=== PATIENT | male | born 1935 | race Asian ===

== ENCOUNTER → 2021-01-16 | Outpatient (CLI) | payer MEDICARE, OTHER | END | disposition home or self-care (01) | LOC: RADPV 10:42 | PROVIDERS: ATTEND Legal Medicine | DX: I08.3 Combined rheumatic disorders of mitral, aortic and tricuspid valves (principal) | CPT/HCPCS: 93306 ==

== ENCOUNTER 2021-02-08 16:01 | Inpatient (IN) | payer MEDICARE, OTHER ==
[~2021-02-08] VITALS: Ht 170.2 cm; Wt 65.0 kg
[2021-02-08 18:50] LABS: BASOPHILS % (AUTO) 0.7 % (0.0-2.0); EOSINOPHILS % (AUTO) 1.7 % (1.0-6.0); HEMATOCRIT 37.7 % (41-53); HEMOGLOBIN 11.9 g/dL (13.5-17.5); LYMPHOCYTES # (AUTO) 1.1 K/uL (1.0-4.8); LYMPHOCYTES % (AUTO) 12.3 % (22.0-44.0); MEAN CORPUSCULAR HGB CONC 31.6 G/dL (31.0-37.0); MEAN CORPUSCULAR VOLUME 95 fL (80-100); MONOCYTES # (AUTO) 0.7 K/uL (0.1-1.0); MONOCYTES % (AUTO) 7.3 % (2.0-9.0); NEUTROPHILS # (AUTO) 7.1 K/uL (1.8-7.7); PLATELET COUNT (AUTO) 278 K/uL (150-450); RED BLOOD CELL COUNT(AUTO) 3.96 MIL/uL (4.50-5.90); RED CELL DISTRIBUTION WIDTH 13.3 % (11.5-14.5)
[2021-02-08 18:59] LABS: CALCIUM, TOTAL 8.8 mg/dL (8.8-10.5); CREATININE 1.51 mg/dL (0.60-1.30); POTASSIUM 4.3 mmol/L (3.5-5.1)
[2021-02-08 19:05] LABS: TOTAL PROTEIN, SERUM 8.4 g/dL (6.4-8.2)
[2021-02-08 19:30] LABS: COVID AG,FIA SOURCE NASOPHARYNGEAL
[2021-02-08] MEDS ORDERED: ONDANSETRON HCL 4 MG/2 ML VIAL IVP PRN (19:30)
[2021-02-08] MEDS ORDERED: HEPARIN SODIUM,PORCINE 5,000 UNITS/ML VIAL IVP PRN ×2 (19:30)
[2021-02-08] MEDS ORDERED: ATORVASTATIN CALCIUM 40 MG TABLET PO ONE (19:30)
[2021-02-08] MEDS ORDERED: ASPIRIN 325 MG DR TABLET PO ONE (19:30)
[2021-02-08] MEDS ORDERED: HEPARIN SODIUM,PORCINE 5,000 UNITS/ML VIAL IVP ONE (19:30)
[2021-02-08 19:54] LABS: BASOPHILS % (AUTO) 0.5 % (0.0-2.0); EOSINOPHILS % (AUTO) 1.9 % (1.0-6.0); HEMATOCRIT 34.6 % (41-53); HEMOGLOBIN 11.2 g/dL (13.5-17.5); LYMPHOCYTES # (AUTO) 0.9 K/uL (1.0-4.8); LYMPHOCYTES % (AUTO) 12.6 % (22.0-44.0); MEAN CORPUSCULAR HEMOGLOBIN 29.9 pg (26.0-34.0); MEAN CORPUSCULAR HGB CONC 32.4 G/dL (31.0-37.0); MEAN CORPUSCULAR VOLUME 92 fL (80-100); MONOCYTES # (AUTO) 0.6 K/uL (0.1-1.0); MONOCYTES % (AUTO) 8.6 % (2.0-9.0); NEUTROPHILS # (AUTO) 5.4 K/uL (1.8-7.7); NEUTROPHILS % (AUTO) 76.4 % (40.0-70.0); PLATELET COUNT (AUTO) 276 K/uL (150-450); RED BLOOD CELL COUNT(AUTO) 3.74 MIL/uL (4.50-5.90); RED CELL DISTRIBUTION WIDTH 13.3 % (11.5-14.5)
[2021-02-08 20:05] LABS: D-DIMER 1.43 mg/L FEU (0.00-0.50); INR 1.1 (0.9-1.1); PROTHROMBIN TIME 11.4 SEC (9.4-11.6)
[2021-02-08] MEDS: METOPROLOL TARTRATE 25 MG TABLET PO SCH ×2 (20:12→20:17)
[2021-02-08] MEDS: HEPARIN SODIUM 25000 UNITS/D5W 250 ML IV PRN (20:27)
[2021-02-08] MEDS ORDERED: CARVEDILOL 3.125 MG TABLET PO SCH (21:00)
[2021-02-08] MEDS ORDERED: SODIUM CHLORIDE 0.9% 250 ML IV ONE (22:33)
[2021-02-08 22:58] VITALS: BP 105/64
[2021-02-09] MEDS ORDERED: INFLUENZA VIRUS VACCINE QVS 2021-22 (6MO+)/PF 60 MCG/0.5 ML SYRINGE IM. ONE (01:45)
[2021-02-09] MEDS ORDERED: PNEUMOCOCCAL VACCINE POLYVALENT 0.5 ML VIAL [PPSV23] IM. ONE (01:45)
[2021-02-09 04:03] VITALS: BP 99/60
[2021-02-09 06:22] LABS: BASOPHILS % (AUTO) 1.1 % (0.0-2.0); LYMPHOCYTES # (AUTO) 1.4 K/uL (1.0-4.8); LYMPHOCYTES % (AUTO) 18.5 % (22.0-44.0); MEAN CORPUSCULAR HEMOGLOBIN 30.3 pg (26.0-34.0); MEAN CORPUSCULAR HGB CONC 32.4 G/dL (31.0-37.0); MEAN CORPUSCULAR VOLUME 94 fL (80-100); MONOCYTES # (AUTO) 0.6 K/uL (0.1-1.0); MONOCYTES % (AUTO) 8.6 % (2.0-9.0); NEUTROPHILS # (AUTO) 5.1 K/uL (1.8-7.7); NEUTROPHILS % (AUTO) 67.8 % (40.0-70.0); PLATELET COUNT (AUTO) 255 K/uL (150-450); RED BLOOD CELL COUNT(AUTO) 3.63 MIL/uL (4.50-5.90); RED CELL DISTRIBUTION WIDTH 13.1 % (11.5-14.5)
[2021-02-09 06:43] LABS: CALCIUM, TOTAL 8.5 mg/dL (8.8-10.5); CREATININE 1.27 mg/dL (0.60-1.30); MAGNESIUM 2.3 mg/dL (1.80-2.40); POTASSIUM 4.5 mmol/L (3.5-5.1)
[2021-02-09 07:30] VITALS: BP 102/66
[2021-02-09] MEDS: ATORVASTATIN CALCIUM 40 MG TABLET PO SCH (08:48)
[2021-02-09] MEDS: FUROSEMIDE 20 MG/2 ML VIAL IVP SCH (08:49)
[2021-02-09] MEDS: ASPIRIN 81 MG CHEWABLE TABLET PO SCH (08:49)
[2021-02-09] MEDS: METOPROLOL TARTRATE 25 MG TABLET PO SCH ×2 (08:50→20:06)
[2021-02-09] MEDS ORDERED: ATORVASTATIN CALCIUM 40 MG TABLET PO SCH (09:00)
[2021-02-09 11:39] VITALS: BP 93/60
[2021-02-09 15:43] VITALS: BP 99/60
[2021-02-09 20:04] VITALS: BP 97/59
[2021-02-09] MEDS ORDERED: ALBUTEROL SULFATE 2.5 MG/0.5 ML NEB SOLUTION NEB PRN (22:15)
[2021-02-10] VITALS (7 sets, daily range): BP systolic 83–113; BP diastolic 54–70
[2021-02-10 06:46] LABS: BASOPHILS % (AUTO) 0.9 % (0.0-2.0); EOSINOPHILS % (AUTO) 2.8 % (1.0-6.0); HEMATOCRIT 34.7 % (41-53); HEMOGLOBIN 11.5 g/dL (13.5-17.5); LYMPHOCYTES # (AUTO) 1.2 K/uL (1.0-4.8); LYMPHOCYTES % (AUTO) 14.4 % (22.0-44.0); MEAN CORPUSCULAR HEMOGLOBIN 30.5 pg (26.0-34.0); MEAN CORPUSCULAR HGB CONC 33.2 G/dL (31.0-37.0); MEAN CORPUSCULAR VOLUME 92 fL (80-100); MONOCYTES # (AUTO) 0.6 K/uL (0.1-1.0); MONOCYTES % (AUTO) 7.2 % (2.0-9.0); NEUTROPHILS # (AUTO) 6.1 K/uL (1.8-7.7); NEUTROPHILS % (AUTO) 74.7 % (40.0-70.0); PLATELET COUNT (AUTO) 302 K/uL (150-450); RED BLOOD CELL COUNT(AUTO) 3.78 MIL/uL (4.50-5.90)
[2021-02-10 07:23] LABS: ALBUMIN 2.7 g/dL (3.4-5.0); CALCIUM, TOTAL 8.8 mg/dL (8.8-10.5); CREATININE 1.29 mg/dL (0.60-1.30); MAGNESIUM 2.1 mg/dL (1.80-2.40); POTASSIUM 4.2 mmol/L (3.5-5.1); TOTAL PROTEIN, SERUM 8.2 g/dL (6.4-8.2)
[2021-02-10] MEDS: FUROSEMIDE 20 MG/2 ML VIAL IVP SCH (07:47)
[2021-02-10] MEDS: ASPIRIN 81 MG CHEWABLE TABLET PO SCH (07:48)
[2021-02-10] MEDS: METOPROLOL TARTRATE 25 MG TABLET PO SCH ×2 (07:49→20:38)
[2021-02-10] MEDS: ATORVASTATIN CALCIUM 40 MG TABLET PO SCH (09:05)
[2021-02-10] MEDS: SACUBITRIL/VALSARTAN 24-26 MG TABLET PO SCH ×2 (10:12→20:38)
[2021-02-11 05:10] VITALS: BP 95/58
[2021-02-11 06:26] LABS: BASOPHILS % (AUTO) 0.9 % (0.0-2.0); EOSINOPHILS % (AUTO) 3.1 % (1.0-6.0); HEMATOCRIT 32.2 % (41-53); HEMOGLOBIN 10.7 g/dL (13.5-17.5); LYMPHOCYTES # (AUTO) 1.2 K/uL (1.0-4.8); LYMPHOCYTES % (AUTO) 14.9 % (22.0-44.0); MEAN CORPUSCULAR HGB CONC 33.2 G/dL (31.0-37.0); MEAN CORPUSCULAR VOLUME 93 fL (80-100); MONOCYTES # (AUTO) 0.7 K/uL (0.1-1.0); MONOCYTES % (AUTO) 8.2 % (2.0-9.0); NEUTROPHILS # (AUTO) 5.9 K/uL (1.8-7.7); NEUTROPHILS % (AUTO) 72.9 % (40.0-70.0); PLATELET COUNT (AUTO) 274 K/uL (150-450); RED BLOOD CELL COUNT(AUTO) 3.45 MIL/uL (4.50-5.90); RED CELL DISTRIBUTION WIDTH 12.9 % (11.5-14.5)
[2021-02-11 06:54] LABS: ALBUMIN 2.3 g/dL (3.4-5.0); BILIRUBIN,TOTAL 0.7 mg/dL (0.1-1.0); CALCIUM, TOTAL 8.5 mg/dL (8.8-10.5); CREATININE 1.19 mg/dL (0.60-1.30); MAGNESIUM 2.2 mg/dL (1.80-2.40); POTASSIUM 4.2 mmol/L (3.5-5.1); TOTAL PROTEIN, SERUM 6.8 g/dL (6.4-8.2)
[2021-02-11 08:19] VITALS: BP 90/59
[2021-02-11] MEDS: ASPIRIN 81 MG CHEWABLE TABLET PO SCH (08:49)
[2021-02-11] MEDS: ATORVASTATIN CALCIUM 40 MG TABLET PO SCH (08:49)
[2021-02-11] MEDS: FUROSEMIDE 20 MG/2 ML VIAL IVP SCH (08:50)
[2021-02-11] MEDS: METOPROLOL TARTRATE 25 MG TABLET PO SCH ×2 (08:50→21:00)
[2021-02-11] MEDS: SACUBITRIL/VALSARTAN 24-26 MG TABLET PO SCH ×2 (08:50→21:04)
[2021-02-11 11:40] VITALS: BP 132/54
[2021-02-11 15:46] VITALS: BP 93/53
[2021-02-11 20:25] VITALS: BP 90/51
[2021-02-11 23:39] VITALS: BP 94/58
[2021-02-12] MEDS: HEPARIN SODIUM 25000 UNITS/D5W 250 ML IV PRN (03:11)
[2021-02-12 06:04] VITALS: BP 92/54
[2021-02-12 07:08] LABS: BASOPHILS % (AUTO) 0.5 % (0.0-2.0); EOSINOPHILS % (AUTO) 2.5 % (1.0-6.0); HEMATOCRIT 32.2 % (41-53); HEMOGLOBIN 10.4 g/dL (13.5-17.5); LYMPHOCYTES # (AUTO) 1.1 K/uL (1.0-4.8); LYMPHOCYTES % (AUTO) 12.2 % (22.0-44.0); MEAN CORPUSCULAR HEMOGLOBIN 30.3 pg (26.0-34.0); MEAN CORPUSCULAR HGB CONC 32.4 G/dL (31.0-37.0); MEAN CORPUSCULAR VOLUME 94 fL (80-100); MONOCYTES # (AUTO) 0.6 K/uL (0.1-1.0); MONOCYTES % (AUTO) 6.5 % (2.0-9.0); NEUTROPHILS # (AUTO) 7.1 K/uL (1.8-7.7); NEUTROPHILS % (AUTO) 78.3 % (40.0-70.0); PLATELET COUNT (AUTO) 315 K/uL (150-450); RED BLOOD CELL COUNT(AUTO) 3.44 MIL/uL (4.50-5.90); RED CELL DISTRIBUTION WIDTH 13.2 % (11.5-14.5)
[2021-02-12 07:51] VITALS: BP 98/58
[2021-02-12] MEDS: ASPIRIN 81 MG CHEWABLE TABLET PO SCH (08:36)
[2021-02-12] MEDS: FUROSEMIDE 20 MG/2 ML VIAL IVP SCH (08:36)
[2021-02-12] MEDS: ATORVASTATIN CALCIUM 40 MG TABLET PO SCH (08:37)
[2021-02-12] MEDS: SACUBITRIL/VALSARTAN 24-26 MG TABLET PO SCH ×2 (08:40→21:00)
[2021-02-12] MEDS: METOPROLOL TARTRATE 25 MG TABLET PO SCH ×2 (08:40→21:00)
[2021-02-12 12:52] VITALS: BP 89/57
[2021-02-12 15:43] VITALS: BP 103/54
[2021-02-12] MEDS: HEPARIN SODIUM,PORCINE 5,000 UNITS/ML VIAL SQ SCH ×2 (17:06→23:41)
[2021-02-12 19:45] VITALS: BP 91/55
[2021-02-13] VITALS (14 sets, daily range): BP systolic 80–111; BP diastolic 43–67
[2021-02-13] MEDS: ASPIRIN 81 MG CHEWABLE TABLET PO SCH (08:03)
[2021-02-13] MEDS: HEPARIN SODIUM,PORCINE 5,000 UNITS/ML VIAL SQ SCH ×3 (08:03→23:48)
[2021-02-13] MEDS: ATORVASTATIN CALCIUM 40 MG TABLET PO SCH (08:04)
[2021-02-13] MEDS: FUROSEMIDE 20 MG/2 ML VIAL IVP SCH (08:04)
[2021-02-13] MEDS: METOPROLOL TARTRATE 25 MG TABLET PO SCH ×4 (08:05→20:03)
[2021-02-13] MEDS: SACUBITRIL/VALSARTAN 24-26 MG TABLET PO SCH ×2 (08:06→20:03)
[2021-02-13] MEDS ORDERED: FURO20 PO (11:51)
[2021-02-13] MEDS ORDERED: ASPI-1450 PO (11:51)
[2021-02-13] MEDS ORDERED: ATOR20TA86 PO (11:51)
[2021-02-13] MEDS ORDERED: METO25 PO (11:52)
[2021-02-13] MEDS ORDERED: SACU1TAB PO (11:52)
[2021-02-13] MEDS ORDERED: APIX2.5T PO (11:53)
[2021-02-13] MEDS: DOCUSATE SODIUM 100 MG CAPSULE PO SCH (12:08)
[2021-02-13] MEDS: ACETAMINOPHEN 325 MG TABLET PO PRN (13:08)
[2021-02-13 14:23] LABS: CALCIUM, TOTAL 8.8 mg/dL (8.8-10.5); CREATININE 1.78 mg/dL (0.60-1.30); POTASSIUM 4.2 mmol/L (3.5-5.1)
[2021-02-13 14:26] LABS: MAGNESIUM 2.3 mg/dL (1.80-2.40); PHOSPHORUS 4.1 mg/dL (2.5-4.9)
[2021-02-13] MEDS: TICAGRELOR 90 MG TABLET PO SCH ×2 (14:33→20:03)
[2021-02-13] MEDS ORDERED: SODIUM CHLORIDE 0.9% 1,000 ML ONE (16:20)
[2021-02-13] MEDS ORDERED: SODIUM CHLORIDE 0.9% 1,000 ML IV ONE ×2 (16:30→17:30)
[2021-02-13] MEDS ORDERED: SODIUM CHLORIDE 0.9% 150 ML IV ONE (21:00)
[2021-02-13 21:05] LABS: HEMATOCRIT 28.7 % (41-53); HEMOGLOBIN 9.5 g/dL (13.5-17.5)
[2021-02-14] VITALS (22 sets, daily range): BP systolic 6–139; BP diastolic 45–83
[2021-02-14 06:39] LABS: HEMATOCRIT 27.3 % (41-53); HEMOGLOBIN 8.9 g/dL (13.5-17.5); MEAN CORPUSCULAR HEMOGLOBIN 30.2 pg (26.0-34.0); MEAN CORPUSCULAR HGB CONC 32.7 G/dL (31.0-37.0); MEAN CORPUSCULAR VOLUME 93 fL (80-100); PLATELET COUNT (AUTO) 351 K/uL (150-450); RED BLOOD CELL COUNT(AUTO) 2.95 MIL/uL (4.50-5.90); RED CELL DISTRIBUTION WIDTH 13.4 % (11.5-14.5)
[2021-02-14 07:07] LABS: ALBUMIN 2.7 g/dL (3.4-5.0); BILIRUBIN,TOTAL 0.8 mg/dL (0.1-1.0); CALCIUM, TOTAL 8.7 mg/dL (8.8-10.5); CREATININE 1.42 mg/dL (0.60-1.30); POTASSIUM 5.2 mmol/L (3.5-5.1); TOTAL PROTEIN, SERUM 7.9 g/dL (6.4-8.2)
[2021-02-14 07:23] LABS: INR 1.1 (0.9-1.1); PROTHROMBIN TIME 11.5 SEC (9.4-11.6)
[2021-02-14] MEDS: HEPARIN SODIUM,PORCINE 5,000 UNITS/ML VIAL SQ SCH ×3 (08:00→23:45)
[2021-02-14 08:09] LABS: BAND NEUTROPHILS % (MANUAL) 1 % (0-5); EOSINOPHILS % (MANUAL) 1 % (1-6); LYMPHOCYTES % (MANUAL) 13 % (22-44); MONOCYTES % (MANUAL) 4 % (2-9); SEGMENTED NEUTROPHILS % 81 % (40-70)
[2021-02-14] MEDS ORDERED: IOHEXOL 300 MG/ML 100 ML VIAL ONE (08:48)
[2021-02-14] MEDS ORDERED: IOHEXOL 300 MG/ML 150 ML VIAL ONE (08:48)
[2021-02-14] MEDS ORDERED: SODIUM BICARBONATE 50 MEQ/50 ML VIAL ONE (08:48)
[2021-02-14] MEDS ORDERED: HEPARIN SODIUM 1000 UNITS/NS 1,000 ML ONE (08:48)
[2021-02-14] MEDS ORDERED: IOHEXOL 300 MG/ML 50 ML VIAL ONE (08:48)
[2021-02-14] MEDS ORDERED: LIDOCAINE/PF 1% 30 ML VIAL ONE (08:48)
[2021-02-14] MEDS: DOCUSATE SODIUM 100 MG CAPSULE PO SCH (08:56)
[2021-02-14] MEDS: ASPIRIN 81 MG CHEWABLE TABLET PO SCH (08:56)
[2021-02-14] MEDS: ATORVASTATIN CALCIUM 40 MG TABLET PO SCH (08:56)
[2021-02-14] MEDS: FUROSEMIDE 20 MG/2 ML VIAL IVP SCH (08:57)
[2021-02-14] MEDS: TICAGRELOR 90 MG TABLET PO SCH ×2 (08:57→20:26)
[2021-02-14] MEDS: SACUBITRIL/VALSARTAN 24-26 MG TABLET PO SCH ×2 (09:00→21:00)
[2021-02-14] MEDS: METOPROLOL TARTRATE 25 MG TABLET PO SCH ×2 (09:00→21:00)
[2021-02-14] MEDS ORDERED: FentaNYL CITRATE PF 100 MCG/2 ML VIAL ONE (09:25)
[2021-02-14] MEDS ORDERED: MIDAZOLAM HCL 2 MG/2 ML VIAL ONE (09:25)
[2021-02-14] MEDS ORDERED: NITROGLYCERIN 50 MG/D5% WATER 0 ML ONE (09:26)
[2021-02-14] MEDS ORDERED: VERAPAMIL HCL 2.5 MG/ML 2 ML VIAL ONE (09:26)
[2021-02-14] MEDS ORDERED: LIDOCAINE 1% 30 ML/SOD BICARB 8.4% 4 ML SQ ONE (09:45)
[2021-02-14] MEDS ORDERED: IOHEXOL 300 MG/ML 150 ML VIAL IARTER ONE (09:45)
[2021-02-14] MEDS ORDERED: HEPARIN SODIUM 1000 UNITS/NS 1,000 ML IARTER ONE (09:45)
[2021-02-14] MEDS ORDERED: SODIUM POLYSTYRENE SULFONATE 15 GM/60 ML SUSPENSION BOTTLE PO ONE (15:00)
[2021-02-14] MEDS ORDERED: SODIUM CHLORIDE 0.9% 250 ML IV ONE (20:15)
[2021-02-15] VITALS (10 sets, daily range): BP systolic 85–109; BP diastolic 45–66
[2021-02-15] MEDS: TICAGRELOR 90 MG TABLET PO SCH ×2 (07:49→20:27)
[2021-02-15] MEDS: ATORVASTATIN CALCIUM 40 MG TABLET PO SCH (07:49)
[2021-02-15] MEDS: DOCUSATE SODIUM 100 MG CAPSULE PO SCH (07:49)
[2021-02-15] MEDS: ASPIRIN 81 MG CHEWABLE TABLET PO SCH (07:49)
[2021-02-15] MEDS: ACETAMINOPHEN 325 MG TABLET PO PRN (07:50)
[2021-02-15] MEDS: FUROSEMIDE 20 MG/2 ML VIAL IVP SCH (07:50)
[2021-02-15] MEDS: HEPARIN SODIUM,PORCINE 5,000 UNITS/ML VIAL SQ SCH (07:50)
[2021-02-15] MEDS: SACUBITRIL/VALSARTAN 24-26 MG TABLET PO SCH ×2 (07:51→20:23)
[2021-02-15] MEDS: METOPROLOL TARTRATE 25 MG TABLET PO SCH ×2 (07:51→20:01)
[2021-02-15] MEDS ORDERED: HEPARIN SODIUM,PORCINE 5,000 UNITS/ML VIAL IVP PRN ×2 (09:45)
[2021-02-15] MEDS ORDERED: HEPARIN SODIUM,PORCINE 5,000 UNITS/ML VIAL IVP ONE (09:45)
[2021-02-15] MEDS ORDERED: HEPARIN SODIUM 25000 UNITS/D5W 250 ML IV PRN (09:45)
[2021-02-15] MEDS ORDERED: SODIUM CHLORIDE 0.9% 500 ML IV ONE (11:55)
[2021-02-15] MEDS ORDERED: SODIUM CHLORIDE 0.9% 250 ML IV ONE (12:00)
[2021-02-15 12:10] LABS: BASOPHILS % (AUTO) 0.8 % (0.0-2.0); EOSINOPHILS % (AUTO) 0.6 % (1.0-6.0); HEMATOCRIT 25.4 % (41-53); HEMOGLOBIN 8.3 g/dL (13.5-17.5); LYMPHOCYTES # (AUTO) 1.1 K/uL (1.0-4.8); LYMPHOCYTES % (AUTO) 11.6 % (22.0-44.0); MEAN CORPUSCULAR HEMOGLOBIN 30.5 pg (26.0-34.0); MEAN CORPUSCULAR HGB CONC 32.8 G/dL (31.0-37.0); MEAN CORPUSCULAR VOLUME 93 fL (80-100); MONOCYTES # (AUTO) 0.6 K/uL (0.1-1.0); MONOCYTES % (AUTO) 6.3 % (2.0-9.0); NEUTROPHILS # (AUTO) 7.9 K/uL (1.8-7.7); NEUTROPHILS % (AUTO) 80.7 % (40.0-70.0); PLATELET COUNT (AUTO) 327 K/uL (150-450); RED BLOOD CELL COUNT(AUTO) 2.72 MIL/uL (4.50-5.90)
[2021-02-15 12:25] LABS: INR 1.1 (0.9-1.1); PROTHROMBIN TIME 11.7 SEC (9.4-11.6)
[2021-02-15 15:10] LABS: COVID AG,FIA SOURCE NASOPHARYNGEAL
[2021-02-16] VITALS (10 sets, daily range): BP systolic 75–108; BP diastolic 40–70
[2021-02-16 06:26] LABS: BASOPHILS % (AUTO) 0.8 % (0.0-2.0); EOSINOPHILS % (AUTO) 0.7 % (1.0-6.0); HEMATOCRIT 23.9 % (41-53); HEMOGLOBIN 7.9 g/dL (13.5-17.5); LYMPHOCYTES # (AUTO) 1.7 K/uL (1.0-4.8); LYMPHOCYTES % (AUTO) 13.4 % (22.0-44.0); MEAN CORPUSCULAR HEMOGLOBIN 31.6 pg (26.0-34.0); MEAN CORPUSCULAR VOLUME 96 fL (80-100); MONOCYTES # (AUTO) 0.7 K/uL (0.1-1.0); MONOCYTES % (AUTO) 5.6 % (2.0-9.0); NEUTROPHILS # (AUTO) 10.2 K/uL (1.8-7.7); NEUTROPHILS % (AUTO) 79.5 % (40.0-70.0); PLATELET COUNT (AUTO) 356 K/uL (150-450); RED CELL DISTRIBUTION WIDTH 14.2 % (11.5-14.5)
[2021-02-16] MEDS: METOPROLOL TARTRATE 25 MG TABLET PO SCH (08:03)
[2021-02-16] MEDS: ASPIRIN 81 MG CHEWABLE TABLET PO SCH (08:04)
[2021-02-16] MEDS: DOCUSATE SODIUM 100 MG CAPSULE PO SCH (08:04)
[2021-02-16] MEDS: TICAGRELOR 90 MG TABLET PO SCH ×2 (08:04→21:00)
[2021-02-16] MEDS: FUROSEMIDE 20 MG/2 ML VIAL IVP SCH (08:05)
[2021-02-16] MEDS: SACUBITRIL/VALSARTAN 24-26 MG TABLET PO SCH ×2 (08:05→21:00)
[2021-02-16] MEDS: ATORVASTATIN CALCIUM 40 MG TABLET PO SCH (08:05)
[2021-02-16 10:29] LABS: BASOPHILS % (AUTO) 1.3 % (0.0-2.0); EOSINOPHILS % (AUTO) 0.5 % (1.0-6.0); HEMATOCRIT 24.6 % (41-53); LYMPHOCYTES % (AUTO) 15.4 % (22.0-44.0); MEAN CORPUSCULAR HEMOGLOBIN 30.8 pg (26.0-34.0); MEAN CORPUSCULAR HGB CONC 32.6 G/dL (31.0-37.0); MEAN CORPUSCULAR VOLUME 94 fL (80-100); MONOCYTES # (AUTO) 0.6 K/uL (0.1-1.0); NEUTROPHILS # (AUTO) 9.9 K/uL (1.8-7.7); NEUTROPHILS % (AUTO) 77.8 % (40.0-70.0); PLATELET COUNT (AUTO) 367 K/uL (150-450); RED BLOOD CELL COUNT(AUTO) 2.61 MIL/uL (4.50-5.90); RED CELL DISTRIBUTION WIDTH 14.2 % (11.5-14.5)
[2021-02-16] MEDS: NOREPINEPHRINE 4 MG/D5%-WATER 250 ML IV PRN (12:24)
[2021-02-16 13:15] LABS: CALCIUM, TOTAL 8.7 mg/dL (8.8-10.5); CREATININE 2.04 mg/dL (0.60-1.30); POTASSIUM 4.6 mmol/L (3.5-5.1)
[2021-02-16 13:39] LABS: HEMATOCRIT 31.2 % (41-53); HEMOGLOBIN 10.1 g/dL (13.5-17.5)
[2021-02-16] MEDS: SODIUM CHLORIDE 0.9% 500 ML IV SCH (17:27)
[2021-02-17] VITALS: BP 98/65
[2021-02-17] MEDS: NOREPINEPHRINE 4 MG/D5%-WATER 250 ML IV PRN (03:36)
[2021-02-17 04:00] VITALS: BP 112/73
[2021-02-17 05:10] LABS: BASOPHILS % (AUTO) 0.5 % (0.0-2.0); EOSINOPHILS % (AUTO) 0.1 % (1.0-6.0); HEMATOCRIT 32.5 % (41-53); HEMOGLOBIN 10.6 g/dL (13.5-17.5); LYMPHOCYTES # (AUTO) 1.2 K/uL (1.0-4.8); LYMPHOCYTES % (AUTO) 6.9 % (22.0-44.0); MEAN CORPUSCULAR HEMOGLOBIN 30.5 pg (26.0-34.0); MEAN CORPUSCULAR HGB CONC 32.6 G/dL (31.0-37.0); MEAN CORPUSCULAR VOLUME 94 fL (80-100); MONOCYTES # (AUTO) 0.9 K/uL (0.1-1.0); MONOCYTES % (AUTO) 5.2 % (2.0-9.0); NEUTROPHILS # (AUTO) 15.4 K/uL (1.8-7.7); PLATELET COUNT (AUTO) 372 K/uL (150-450); RED BLOOD CELL COUNT(AUTO) 3.47 MIL/uL (4.50-5.90); RED CELL DISTRIBUTION WIDTH 14.9 % (11.5-14.5)
[2021-02-17 05:18] LABS: NEUTROPHILS % (AUTO) 87.3 % (40.0-70.0)
[2021-02-17] MEDS: SODIUM CHLORIDE 0.9% 500 ML IV SCH ×2 (07:01→12:45)
[2021-02-17 08:00] VITALS: BP 100/63
[2021-02-17] MEDS: SACUBITRIL/VALSARTAN 24-26 MG TABLET PO SCH ×2 (09:00→21:00)
[2021-02-17] MEDS: METOPROLOL TARTRATE 25 MG TABLET PO SCH ×2 (09:00→21:00)
[2021-02-17] MEDS ORDERED: BUMETANIDE 0.25 MG/ML 4 ML VIAL IVP ONE (09:15)
[2021-02-17] MEDS ORDERED: HEPARIN SODIUM,PORCINE 5,000 UNITS/ML VIAL IVP PRN ×2 (09:30)
[2021-02-17] MEDS: DOCUSATE SODIUM 100 MG CAPSULE PO SCH (09:39)
[2021-02-17] MEDS: ETHYL ALCOHOL 62% ANTISEPTIC NASAL INHALANT 0.6 ML AMPUL NASAL SCH ×2 (09:39→20:43)
[2021-02-17] MEDS: TICAGRELOR 90 MG TABLET PO SCH ×2 (09:46→20:43)
[2021-02-17] MEDS: ASPIRIN 81 MG CHEWABLE TABLET PO SCH (09:46)
[2021-02-17] MEDS: ATORVASTATIN CALCIUM 40 MG TABLET PO SCH (09:46)
[2021-02-17] MEDS: HEPARIN SODIUM 25000 UNITS/D5W 250 ML IV PRN (10:25)
[2021-02-17 10:27] LABS: INR 1.2 (0.9-1.1); PROTHROMBIN TIME 12.3 SEC (9.4-11.6)
[2021-02-17 12:00] VITALS: BP 104/63
[2021-02-17] MEDS ORDERED: SODIUM CHLORIDE 0.9% 0 ML ONE (12:42)
[2021-02-17 16:00] VITALS: BP 105/26
[2021-02-17 20:00] VITALS: BP 94/59
[2021-02-18] VITALS (7 sets, daily range): BP systolic 92–108; BP diastolic 55–77
[2021-02-18 05:11] LABS: BASOPHILS % (AUTO) 0.4 % (0.0-2.0); EOSINOPHILS % (AUTO) 0.8 % (1.0-6.0); HEMATOCRIT 30.6 % (41-53); HEMOGLOBIN 9.9 g/dL (13.5-17.5); LYMPHOCYTES # (AUTO) 1.1 K/uL (1.0-4.8); LYMPHOCYTES % (AUTO) 5.6 % (22.0-44.0); MEAN CORPUSCULAR HEMOGLOBIN 30.4 pg (26.0-34.0); MEAN CORPUSCULAR HGB CONC 32.3 G/dL (31.0-37.0); MEAN CORPUSCULAR VOLUME 94 fL (80-100); MONOCYTES # (AUTO) 1.1 K/uL (0.1-1.0); MONOCYTES % (AUTO) 6.1 % (2.0-9.0); NEUTROPHILS # (AUTO) 16.5 K/uL (1.8-7.7); PLATELET COUNT (AUTO) 366 K/uL (150-450); RED BLOOD CELL COUNT(AUTO) 3.25 MIL/uL (4.50-5.90); RED CELL DISTRIBUTION WIDTH 14.8 % (11.5-14.5)
[2021-02-18 05:20] LABS: NEUTROPHILS % (AUTO) 87.1 % (40.0-70.0)
[2021-02-18] MEDS: SODIUM CHLORIDE 0.9% 500 ML IV SCH ×2 (06:53→18:36)
[2021-02-18] MEDS: NOREPINEPHRINE 4 MG/D5%-WATER 250 ML IV PRN (06:55)
[2021-02-18] MEDS: SACUBITRIL/VALSARTAN 24-26 MG TABLET PO SCH ×2 (09:00→21:00)
[2021-02-18] MEDS: METOPROLOL TARTRATE 25 MG TABLET PO SCH ×2 (09:00→20:33)
[2021-02-18] MEDS: BUMETANIDE 0.25 MG/ML 4 ML VIAL IVP SCH (09:21)
[2021-02-18] MEDS: ASPIRIN 81 MG CHEWABLE TABLET PO SCH (09:22)
[2021-02-18] MEDS: ETHYL ALCOHOL 62% ANTISEPTIC NASAL INHALANT 0.6 ML AMPUL NASAL SCH ×2 (09:22→20:32)
[2021-02-18] MEDS: TICAGRELOR 90 MG TABLET PO SCH ×2 (09:22→20:32)
[2021-02-18] MEDS: DOCUSATE SODIUM 100 MG CAPSULE PO SCH (09:22)
[2021-02-18] MEDS: ATORVASTATIN CALCIUM 40 MG TABLET PO SCH (09:23)
[2021-02-18] MEDS: HEPARIN SODIUM 25000 UNITS/D5W 250 ML IV PRN (12:04)
[2021-02-19 00:04] VITALS: BP 88/48
[2021-02-19 04:34] VITALS: BP 117/64
[2021-02-19] MEDS ORDERED: SODIUM CHLORIDE 0.9% 250 ML IV ONE (07:17)
[2021-02-19] MEDS: NOREPINEPHRINE 4 MG/D5%-WATER 250 ML IV PRN ×2 (07:20→20:04)
[2021-02-19 08:00] VITALS: BP 111/59
[2021-02-19] MEDS: METOPROLOL TARTRATE 25 MG TABLET PO SCH ×2 (09:00→19:56)
[2021-02-19] MEDS: SACUBITRIL/VALSARTAN 24-26 MG TABLET PO SCH ×2 (09:00→19:56)
[2021-02-19 09:19] LABS: BASOPHILS % (AUTO) 0.3 % (0.0-2.0); EOSINOPHILS % (AUTO) 0.5 % (1.0-6.0); HEMATOCRIT 29.5 % (41-53); HEMOGLOBIN 9.4 g/dL (13.5-17.5); LYMPHOCYTES # (AUTO) 1.2 K/uL (1.0-4.8); LYMPHOCYTES % (AUTO) 5.6 % (22.0-44.0); MEAN CORPUSCULAR HEMOGLOBIN 30.5 pg (26.0-34.0); MEAN CORPUSCULAR HGB CONC 31.9 G/dL (31.0-37.0); MEAN CORPUSCULAR VOLUME 96 fL (80-100); MONOCYTES % (AUTO) 4.7 % (2.0-9.0); NEUTROPHILS # (AUTO) 19.3 K/uL (1.8-7.7); PLATELET COUNT (AUTO) 361 K/uL (150-450); RED BLOOD CELL COUNT(AUTO) 3.08 MIL/uL (4.50-5.90); RED CELL DISTRIBUTION WIDTH 15.3 % (11.5-14.5)
[2021-02-19 09:21] LABS: CALCIUM, TOTAL 8.1 mg/dL (8.8-10.5); CREATININE 1.58 mg/dL (0.60-1.30); NEUTROPHILS % (AUTO) 88.9 % (40.0-70.0); POTASSIUM 3.5 mmol/L (3.5-5.1)
[2021-02-19] MEDS: SODIUM CHLORIDE 0.9% 500 ML IV SCH ×2 (09:40→20:04)
[2021-02-19] MEDS: ETHYL ALCOHOL 62% ANTISEPTIC NASAL INHALANT 0.6 ML AMPUL NASAL SCH ×2 (09:41→20:03)
[2021-02-19] MEDS: BUMETANIDE 0.25 MG/ML 4 ML VIAL IVP SCH (09:41)
[2021-02-19] MEDS: ATORVASTATIN CALCIUM 40 MG TABLET PO SCH (09:41)
[2021-02-19] MEDS: DOCUSATE SODIUM 100 MG CAPSULE PO SCH (09:41)
[2021-02-19] MEDS: TICAGRELOR 90 MG TABLET PO SCH ×2 (09:41→20:03)
[2021-02-19] MEDS: ASPIRIN 81 MG CHEWABLE TABLET PO SCH (09:41)
[2021-02-19 12:00] VITALS: BP 83/38
[2021-02-19] MEDS ORDERED: CefTRIAXone 1 GM/DEXTROSE 50 ML IV SCH (13:00)
[2021-02-19] MEDS: HEPARIN SODIUM 25000 UNITS/D5W 250 ML IV PRN (13:20)
[2021-02-19] MEDS ORDERED: AZITHROMYCIN 500 MG/NS 250 ML IV SCH (14:00)
[2021-02-19 16:00] VITALS: BP 84/52
[2021-02-19 20:00] VITALS: BP 94/63
== END 2021-02-19 22:20 | DRG 280 ==
LOC: EMS 17:47 → 5N 21:07 → AHU 02-16 11:15 → ICU 02-16 19:43
PROVIDERS: ADMIT Internal Medicine; ATTEND Internal Medicine
PROC: 4A023N7 Measurement of Cardiac Sampling and Pressure, Left Heart, Percutaneous Approach (ICD-10-PCS; principal; 2021-02-14)
PROC: B2111ZZ Fluoroscopy of Multiple Coronary Arteries using Low Osmolar Contrast (ICD-10-PCS; 2021-02-14)
PROC: B2151ZZ Fluoroscopy of Left Heart using Low Osmolar Contrast (ICD-10-PCS; 2021-02-14)
PROC: 30233N1 Transfusion of Nonautologous Red Blood Cells into Peripheral Vein, Percutaneous Approach (ICD-10-PCS; 2021-02-16)
DX: I21.4 Non-ST elevation (NSTEMI) myocardial infarction (principal); U07.1 COVID-19; I50.21 Acute systolic (congestive) heart failure; J12.82 Pneumonia due to coronavirus disease 2019; N17.9 Acute kidney failure, unspecified; I13.0 Hypertensive heart and chronic kidney disease with heart failure and stage 1 through stage 4 chronic kidney disease, or unspecified chronic kidney disease; R57.9 Shock, unspecified; E11.22 Type 2 diabetes mellitus with diabetic chronic kidney disease; N18.9 Chronic kidney disease, unspecified; E78.5 Hyperlipidemia, unspecified; I08.3 Combined rheumatic disorders of mitral, aortic and tricuspid valves; I25.10 Atherosclerotic heart disease of native coronary artery without angina pectoris; I25.5 Ischemic cardiomyopathy; I48.91 Unspecified atrial fibrillation; I25.2 Old myocardial infarction; Z79.899 Other long term (current) drug therapy; Z79.82 Long term (current) use of aspirin
CPT/HCPCS: 51702; 71045; 71250; 74176; 80048; 80053; 82271; 83036; 83735; 83880; 84100; 84484; 85007; 85014; 85018; 85025; 85027; 85379; 85610; 85730; 86850; 86900; 86901; 86923; 87081; 93005; 93306; 97110; 97162; 97165; 97530; 97535; 99285; G0378; J0456; J0696; J1644; J1940; J2250; J3010; J3490; J7030; J7040; J7050; P9016; Q9967; 36415-L1; 36415-TC; J7613; U0003; Z7610